=== PATIENT | female | born 1975 | race Caucasian/White ===

== ENCOUNTER 2016-08-05 00:05 | Emergency (ER) | payer MEDICARE ==
[2016-08-05 08:43] LABS: HEMOGLOBIN 13.1 gm/dl (12.3-15.3); RED BLOOD COUNT 4.76 M/UL (4.00-5.10); WHITE BLOOD COUNT 5.9 K/UL (4.5-11.0)
[2016-08-05 09:00] LABS: BUN/CREATININE RATIO 20 (0-10)
== END 2016-08-05 10:15 | disposition home or self-care (01) ==
LOC: ER1 00:05
PROVIDERS: Physician Assistant
DX: J20.9 Acute bronchitis, unspecified (principal); J01.90 Acute sinusitis, unspecified; I10 Essential (primary) hypertension
CPT/HCPCS: 36415; 71020; 80053; 83605; 85025; 87040; 87081; 87880; 99283; J7030

== ENCOUNTER 2021-02-28 04:25 | Inpatient (IN) | payer OTHER ==
[~2021-02-28] VITALS: Ht 170.2 cm; Wt 131.4 kg
[~2021-02-28 04:25] MED LIST: CLEOCIN HCL300 MG PO; IBUPROFEN600 MG PO; Viscous lidocaine2% TOP
[2021-02-28 05:18] LABS: RED BLOOD COUNT 4.65 M/UL (4.00-5.10); WHITE BLOOD COUNT 6.1 K/UL (4.5-11.0)
[2021-02-28] MEDS ORDERED: PROMETHAZINE-D473 M1 PO (09:30)
[2021-02-28] MEDS ORDERED: TYLENOL EXTRA500 MG PO (09:30)
[2021-03-01 03:36] LABS: HEMOGLOBIN 11.6 gm/dl (12.3-15.3); WHITE BLOOD COUNT 6.3 K/UL (4.5-11.0)
[2021-03-01 03:46] LABS: BUN/CREATININE RATIO 29 (0-10)
[2021-03-01 03:50] LABS: RED BLOOD COUNT 4.17 M/UL (4.00-5.10)
[2021-03-02 03:03] LABS: HEMOGLOBIN 11.1 gm/dl (12.3-15.3); RED BLOOD COUNT 4.02 M/UL (4.00-5.10)
[2021-03-02 03:18] LABS: WHITE BLOOD COUNT 8.8 K/UL (4.5-11.0)
[2021-03-02 03:37] LABS: BUN/CREATININE RATIO 37 (0-10)
--- NOTE | 2021-03-03 01:14 | NUR ---
this patient has called the house player several times this shift reporting that she is not being cared for, this patient has removed her heart monitor, puls ox and reports that staff has done this. the house player has been informed of this, she is instructed to leave the wires on that we use them to monitor her, she states understanding, zion continue to monitor
[2021-03-03 04:56] LABS: BUN/CREATININE RATIO 35 (0-10)
--- NOTE | 2021-03-03 10:42 | NUR ---
03/03/[address] BERNAL AND DR SIMPSON HERE TO SEE PT, OXYGEN IN MID 70'S. PT ATTEMPTED TO GET OUT OF BED TO THE BR WITHOUT AIRVO ON. EXPLAINED ORDER IS IN TO TRANSFER TO ICU. PT DECLINED BIPAP AFTER BOTH PHYSICIANS EXPLAINED THE IMPORTANCE OF WEARING. PT IS ALERT/ORIENTED, EXTENSIVE EDUCATION PROVIDED BY BOTH PHYSICIANS BUT PT CONTINUED TO DECLINE BIPAP.
--- NOTE | 2021-03-03 13:46 | NUR ---
03/03/[address] SIMPSON HERE TO SEE PATIENT, DISCUSSED IN DETAIL RISKS/BENEFITS OF USING OXYGEN, BIPAP AND/OR VENTILATOR.
--- NOTE | 2021-03-03 13:59 | NUR ---
03/03/[address] MOSLEY AT [facility] TO INTUBATE PATIENT, 20 ETOMIDATE AND 50 NATASHA GIVEN IVP RR 36, OXYGEN 87%, HR 163. 03/03/21 1311 VERSED 4MG GIVEN IVP PER DR MOSLEY ORDERS FOR INTUBATION. HR 159, OXYGEN 87%, RR 26. 03/03/21 [address] MOSLEY, CONFIRMED PER CXR. 03/03/21 1315 121/83, O2 95% BAGGED PER RT TRANSFERRED TO ICU.
[2021-03-04 05:53] LABS: HEMOGLOBIN 10.8 gm/dl (12.3-15.3); RED BLOOD COUNT 4.02 M/UL (4.00-5.10)
[2021-03-04 05:57] LABS: WHITE BLOOD COUNT 12.2 K/UL (4.5-11.0)
[2021-03-04 06:15] LABS: BUN/CREATININE RATIO 28 (0-10)
[2021-03-05 06:00] LABS: HEMOGLOBIN 12.2 gm/dl (12.3-15.3); WHITE BLOOD COUNT 9.7 K/UL (4.5-11.0)
[2021-03-05 06:03] LABS: RED BLOOD COUNT 4.49 M/UL (4.00-5.10)
[2021-03-05 06:12] LABS: BUN/CREATININE RATIO 27 (0-10)
[2021-03-06 05:22] LABS: HEMOGLOBIN 10.8 gm/dl (12.3-15.3); RED BLOOD COUNT 4.05 M/UL (4.00-5.10); WHITE BLOOD COUNT 7.3 K/UL (4.5-11.0)
[2021-03-06 05:51] LABS: BUN/CREATININE RATIO 28 (0-10)
[2021-03-07 05:42] LABS: HEMOGLOBIN 10.9 gm/dl (12.3-15.3); RED BLOOD COUNT 4.05 M/UL (4.00-5.10); WHITE BLOOD COUNT 7.5 K/UL (4.5-11.0)
[2021-03-07 06:04] LABS: BUN/CREATININE RATIO 38 (0-10)
[2021-03-08 05:48] LABS: HEMOGLOBIN 11.3 gm/dl (12.3-15.3); RED BLOOD COUNT 4.22 M/UL (4.00-5.10); WHITE BLOOD COUNT 10.1 K/UL (4.5-11.0)
[2021-03-08 06:05] LABS: BUN/CREATININE RATIO 42 (0-10)
--- NOTE | 2021-03-08 13:11 | NUR ---
1056 PT EXTUBATED CARA WELL,PLACED ON AIRVO AT 80% VIA NC 1130 PT HOLLERING WITH CONFUSED CONVERSATION, SPOKE WITH PT AND SHE CALMED DOWN 1210 PT ANXIOUS STILL CONFUSED, CALMS DOWN WITH CONVERSATION 1250 PT ANXIOUS PHOTO STUDIO ASSISTANT SPEAKING WITH PT
[2021-03-08 20:34] LABS: ADENOVIRUS F 40/41 Not Detected (Negative); ASTROVIRUS Not Detected (Negative); CAMPYLOBACTER Not Detected (Negative); CLOSTRIDIUM DIFFICILE TOX A/B Not Detected (Negative); CRYPTOSPORIDIUM Not Detected (Negative); E.COLI 0157 Not Detected (Negative); ENTAMOEBA HISTOLYTICA Not Detected (Negative); ENTEROPATHOGENIC E.COLI (EPEC) Not Detected (Negative); ENTEROTOXIGENIC E.COLI (ETEC) Not Detected (Negative); GIARDIA LAMBLIA Not Detected (Negative); NOROVIRUS GI/GII Not Detected (Negative); PLESIOMONAS SHIGELLOIDES Not Detected (Negative); ROTOVIRUS A Not Detected (Negative); SALMONELLA Not Detected (Negative); SAPOVIRUS Not Detected (Negative); SHIG/ENTEROINVAS.ECOLI (EIEC) Not Detected (Negative); SHIGA-LIK TOX.PRO.E.COLI (STEC Not Detected (Negative); VIBRIO Not Detected (Negative); VIBRIO CHOLERAE Not Detected (Negative); YERSINIA ENTEROCOLITICA Not Detected (Negative)
[2021-03-09 04:50] LABS: HEMOGLOBIN 11.4 gm/dl (12.3-15.3); RED BLOOD COUNT 4.15 M/UL (4.00-5.10)
[2021-03-09 05:15] LABS: WHITE BLOOD COUNT 12.9 K/UL (4.5-11.0)
[2021-03-09 05:39] LABS: BUN/CREATININE RATIO 42 (0-10)
[2021-03-09 07:36] LABS: ENTEROAGGREGATIVE E.COLI (EAEC DETECTED (Negative)
--- NOTE | 2021-03-09 22:52 | NUR ---
1999 PT BOYFRIEND AT SCREENING TABLE REQUESTING TO COME TO PT ROOM. I INFORMED SCREENING TABLE THAT BOYFRIEND IS COVID POSITIVE AND NOT ALLOWED TO COME SEE PT. BOYFRIEND CALLS THIS RN REQUESTING TO SEE PT, BOYFRIEND REPORTS TO ME THAT HE TESTED POSITIVE FOR COVID 8 DAYS AGO. I INFORMED HIM HE IS NOT ALLOWED IN TO SEE PT. BOYFRIEND REQUESTING INFORMATION ON PT BUT UNABLE TO PROVIDE PIN CODE THAT FAMILY HAD SET UP PRIOR. REPORTS HE WILL CALL BACK ONCE HE HAS THE PIN CODE FROM THE DAUGHTER. 2199 PT REQUESTING RN TO CALL DAUGHTER. RN CALLED KRYSTAL WITH NUMBER PROVIDED ON CHART. CALL WENT TO VOICEMAIL, MAILBOX WAS FULL. PT AWARE. PT REQUESTING RN TO CALL HEIDY (FAMILY MEMBER), HEIDY REPORTS SHE LIVES IN [place] AND WILL TRY TO GET A HOLD OF THE SON OR DAUGHTER. [phone]. 2214 PT DEMANDING TO SPEAK WITH SEXUAL ASSAULT SOCIAL WORKER. RICA CALLED TO BEDSIDE. PT REQUESTING XANAX AND HER OXYGEN TO BE TURNED DOWN SO "IT DOESN'T DAMAGE MY LUNGS." UNABLE TO TURN PT O2 DOWN DT O2 SAT BEING 92%. PT AWARE. I INFORMED PT AGAIN THAT HER XANAX IS NOT DUE FOR ANOTHER 3 HOURS. 2229 ALTHEA (SON) CALLED RN. SON UPDATED ON PT CONDITION AND POC. SON REQUESTING TO SPEAK TO PT. RN CALLED SON FROM PT ROOM. [phone]
--- NOTE | 2021-03-09 23:21 | NUR ---
1845 PT PUSHED CALL LIGHT REQUESTING XANAX. PT INFORMED SHE RECEIVED XANAX AROUND 530PM AND IT ISNT DUE AGAIN UNTIL 0130AM. 1904 PT HIT CALL LIGHT REQUESTING DIRECT ENTRY MIDWIFE. I INFORMED PT THAT DIRECT ENTRY MIDWIFE WOULD BE ROUNDING SOON AND I WOULD SEND HER IN TO TALK TO HER. PT EXPRESSED NO CONCERNS TO THIS RN. 1937 PT HIT CALL LIGHT REQUESTING WATER, WATER SITTING ON PT BEDSIDE TABLE. RN ASSISTED PT WITH DRINKING WATER. 2049 PT CALLED OUT REQUESTING XANAX AGAIN. PT INFORMED XANAX IS NOT DUE YET. 2099 PT HIT CALL LIGHT REQUESTING BOYFRIEND TO COME SEE HER. PT INFORMED ON VISITOR POLICIES. 2119 PT HIT CALL LIGHT REQUESTING HER "LITTLE ORANGE PILL." PT REPORTS ITS HER BP MEDICATION. INFORMED PT THAT IT IS NOT ON HER HOME MEDICATION LIST. PT UNABLE TO PROVIDE MEDICATION NAME OR DOSING. PT GIVEN METOPROLOL PO PER JUN. 2309 PT PUSHED CALL LIGHT REQUESTING A WASHCLOTH, WASHCLOTH GIVEN TO PT. PT REQUESTING TABLE BE PUSHED CLOSER SO SHE CAN DRINK HER WATER. TABLE PUSHED CLOSER. 2319 PT CALLED OUT REQUESTING A DRINK OF WATER. PT ASSISTED WITH WATER. PT STATED TO RN "IM TRYING NOT TO BE MEAN TO YOU." RN ASKED PT IF THERE IS ANYTHING ELSE SHE NEEDS HELP WITH PT STATES "NO." 2333 PT DAUGHTER KRYSTAL CALLED FOR UPDATE. PIN CODE CONFIRMED. UPDATE ON PT AND POC GIVEN. KRYSTAL REPORTS HER PHONE HAS BEEN OFF. RECONFIRMED DEANA PHONE NUMBER WITH HER [phone]. DAUGHTER REPORTS SHE WILL CALL BACK IN THE MORNING.
[2021-03-10 05:20] LABS: HEMOGLOBIN 10.9 gm/dl (12.3-15.3); RED BLOOD COUNT 3.93 M/UL (4.00-5.10)
[2021-03-10 06:02] LABS: BUN/CREATININE RATIO 31 (0-10)
--- NOTE | 2021-03-10 13:31 | NUR ---
PER MD ORDER PATIENT TRANSFERRED TO PCU AFTER CALLING REPORT TO RN LOGAN. PT WAS STABLE AT THIS TIME AND WEARING [id number] MASK. PATIENT PLACED ON MONITORING EQUIPTMENT AFTER TRANSFER, BED ALARM TURNED ON AND HANDOFF GIVEN TO RN AT BEDSIDE.
[2021-03-11 03:29] LABS: RED BLOOD COUNT 4.06 M/UL (4.00-5.10); WHITE BLOOD COUNT 9.8 K/UL (4.5-11.0)
[2021-03-11 03:50] LABS: BUN/CREATININE RATIO 28 (0-10)
[2021-03-12 09:45] LABS: HEMOGLOBIN 12.8 gm/dl (12.3-15.3)
[2021-03-12 09:46] LABS: RED BLOOD COUNT 4.81 M/UL (4.00-5.10); WHITE BLOOD COUNT 13.4 K/UL (4.5-11.0)
[2021-03-12 10:10] LABS: BUN/CREATININE RATIO 26 (0-10)
[2021-03-13 08:42] LABS: HEMOGLOBIN 10.8 gm/dl (12.3-15.3); RED BLOOD COUNT 4.03 M/UL (4.00-5.10)
[2021-03-13 08:55] LABS: BUN/CREATININE RATIO 19 (0-10)
--- NOTE | 2021-03-14 01:26 | NUR ---
APPROX 2340: NOTIFIED MD OF PT O2 SAT OF 75-77%. ORDER TO PLACE PT ON BIPAP OBTAINED. PT REFUSED TO BE PLACED ON BIPAP. APPROX 2347: CALLED MD BACK TO MAKE HIM AWARE OF PT REFUSAL TO WEAR BIPAP. ORDER GIVEN FOR 2MG OF MORPHINE. PT REFUSED MORPHINE STATED IT "MAKES HER SICK" ADVISED PT OF THE IMPORTANCE OF WEARING THE BIPAP TO KEEP O2 SATS UP. PT STATED "STOP TRYING TO SCARE ME, IT WILL MAKE MY BREATHING WORSE" CALLED MD BACK TO MAKE HIM AWARE. STATED HE WOULD COME TO FLOOR. APPROX 0010: MD ON FLOOR TO TALK TO PATIENT. ADVISED PATIENT THE IMPORTANCE OF BIPAP. PT AGREED TO BE PLACED ON BIPAP. O2 SAT 91% ON BIPAP.
--- NOTE | 2021-03-14 03:02 | NUR ---
APPROX 0240: PT REQUESTED BIPAP TO BE REMOVED. RN AND RT STRESSED THE IMPORTANCE OF LEAVING BIPAP IN PLACE. PT STILL INSISTENT OF BIPAP REMOVAL. 0302: PATIENT PLACED BACK ON BIPAP. O2 SAT 89%
[2021-03-14 08:21] LABS: HEMOGLOBIN 11.4 gm/dl (12.3-15.3); RED BLOOD COUNT 4.29 M/UL (4.00-5.10); WHITE BLOOD COUNT 15.6 K/UL (4.5-11.0)
--- NOTE | 2021-03-14 08:22 | NUR ---
PT NONCOMPLIANT WITH BIPAP, WANTING TO TAKE IT OFF. HOUSE AND RN EXPLAINED RISK VS BENIFITS TO PATIENT. PATIENT VERBALIZED SHE UNDERSTOOD RISK OF POSSIBLE VENT OR BUT STILL "NEEDED A BREAK FROM BIPAP". EXPLAINED TO PATIENT WHEN SHE TOOK OF BIPAP HER O2 SATS DROPPED TO 20'S & 30'S PT DENIES DESATING STATING ITS BECAUSE THEY CHANGED THE O2 SENSOR OF FINGER PROBE. PATIENT IS A&OX4, FAMILY AT BESIDE ATTEMPTED TO EXPLAIN RISK OF TAKING OF BIPAP TO PAITENT ALSO. PATIENT SATS LOW 70'S AT THIS TIME WITH BIPAP IN PLACE. MD NOTIFIED. NEW ORDERS TO TRANSFER PATIENT TO ICU WHEN BE AVAILABLE.
[2021-03-14 08:41] LABS: BUN/CREATININE RATIO 18 (0-10)
--- NOTE | 2021-03-14 09:04 | NUR ---
REPORT CALLED TO ICU. PT O2 SAT 68 ON BIPAP. PATIENT TRANSFERED.
[2021-03-14] MEDS ORDERED: LOPRESSOR 25 MG25 MG PO (11:30)
[2021-03-14] MEDS ORDERED: ELIQUIS 5 MG TAB5 MG PO (11:30)
[2021-03-14] MEDS ORDERED: DEXAMETHASONE 44 MG PO (11:30)
[2021-03-14] MEDS ORDERED: SEDATION (11:30)
[2021-03-14] MEDS ORDERED: DEXAMETHASONE 44 MG IV (11:31)
[2021-03-14] MEDS ORDERED: [UNRECOGNIZED DRUG - OTHER] (13:16)
[2021-03-14] MEDS ORDERED: MICAFUNGIN100 MG IV (13:19)
[2021-03-14] MEDS ORDERED: [UNRECOGNIZED DRUG - OTHER] IV (13:19)
[2021-03-15 05:39] LABS: ACINETOBACTER BAUMANNII Not Detected (Negative); CANDIDA ALBICANS Not Detected (Negative); CANDIDA KRUSEI Not Detected (Negative); CANDIDA TROPICALIS Not Detected (Negative); ENTEROCOCCUS Not Detected (Negative); ESCHERICHIA COLI Not Detected (Negative); HAEMOPHILUS INFLUENZAE Not Detected (Negative); KLEBSIELLA OXYTOCA Not Detected (Negative); KLEBSIELLA PNEUMONIAE Not Detected (Negative); KPC-CARBAPENEM-RESISTANCE GENE Not Detected (Negative); PROTEUS Not Detected (Negative); PSEUDOMONAS AERUGINOSA Not Detected (Negative); SERRATIA MARCESANS Not Detected (Negative); STAPHYLOCOCCUS AUREUS Not Detected (Negative); STREP AGALACTIAE (GROUP B) Not Detected (Negative); STREP PYOGENES (GROUP A) Not Detected (Negative); STREPTOCOCCUS Not Detected (Negative); vanA/B (VANCOMYCIN RESIST GENE Not Detected (Negative)
[2021-03-15 05:40] LABS: HEMOGLOBIN 11.5 gm/dl (12.3-15.3); RED BLOOD COUNT 4.13 M/UL (4.00-5.10)
[2021-03-15 05:42] LABS: WHITE BLOOD COUNT 32.6 K/UL (4.5-11.0)
[2021-03-15 07:01] LABS: STAPHYLOCOCCUS DETECTED (Negative); mecA (METHICILLIN RESIST GENE DETECTED (Negative)
[2021-03-16 02:27] LABS: HEMOGLOBIN 9.7 gm/dl (12.3-15.3)
[2021-03-16 02:38] LABS: RED BLOOD COUNT 3.47 M/UL (4.00-5.10); WHITE BLOOD COUNT 30.3 K/UL (4.5-11.0)
[2021-03-17 04:55] LABS: HEMOGLOBIN 8.6 gm/dl (12.3-15.3); WHITE BLOOD COUNT 29.5 K/UL (4.5-11.0)
[2021-03-17 05:37] LABS: RED BLOOD COUNT 3.09 M/UL (4.00-5.10)
[2021-03-19 07:03] LABS: RED BLOOD COUNT 2.95 M/UL (4.00-5.10)
[2021-03-19 07:05] LABS: WHITE BLOOD COUNT 28.4 K/UL (4.5-11.0)
[2021-03-20 05:26] LABS: HEMOGLOBIN 8.2 gm/dl (12.3-15.3); RED BLOOD COUNT 2.95 M/UL (4.00-5.10); WHITE BLOOD COUNT 25.5 K/UL (4.5-11.0)
[2021-03-21 04:37] LABS: HEMOGLOBIN 8.8 gm/dl (12.3-15.3); WHITE BLOOD COUNT 25.6 K/UL (4.5-11.0)
[2021-03-21 15:11] LABS: HEPARIN INDUCED PLATELET AB 0.131 OD (0.000-0.400)
[2021-03-22 05:15] LABS: HEMOGLOBIN 8.1 gm/dl (12.3-15.3); RED BLOOD COUNT 2.87 M/UL (4.00-5.10); WHITE BLOOD COUNT 19.5 K/UL (4.5-11.0)
[2021-03-22 14:21] LABS: HEMOGLOBIN 9.5 gm/dl (12.3-15.3)
[2021-03-22 14:24] LABS: RED BLOOD COUNT 3.27 M/UL (4.00-5.10); WHITE BLOOD COUNT 26.9 K/UL (4.5-11.0)
[2021-03-23 04:14] LABS: HEMOGLOBIN 8.4 gm/dl (12.3-15.3)
[2021-03-23 04:29] LABS: RED BLOOD COUNT 2.86 M/UL (4.00-5.10); WHITE BLOOD COUNT 17.5 K/UL (4.5-11.0)
[2021-03-24 06:34] LABS: HEMOGLOBIN 10.7 gm/dl (12.3-15.3); RED BLOOD COUNT 3.36 M/UL (4.00-5.10)
[2021-03-24 06:36] LABS: WHITE BLOOD COUNT 31.6 K/UL (4.5-11.0)
--- NOTE | 2021-03-24 19:48 | NUR ---
DIALYSIS IN PROGRESS. DIALYSIS R.N. AT BEDSIDE. WILL CONTINUE TO MONITOR AND ASSIST NEEDED.
--- NOTE | 2021-03-24 21:08 | NUR ---
ELIQUIS AND SOLUCORTEF HELD AT SCHEDULED TIME D/T DIALYSIS IN PROGRESS . THESE MEDICATIONS WOULD BE REMOVED DURING PROCEDURE PER DIALYSIS R.N.
--- NOTE | 2021-03-24 23:11 | NUR ---
DIALYSIS COMPLETED. 2100ML REMOVED.
[2021-03-25 05:19] LABS: HEMOGLOBIN 10.5 gm/dl (12.3-15.3)
[2021-03-25 05:31] LABS: RED BLOOD COUNT 2.94 M/UL (4.00-5.10); WHITE BLOOD COUNT 34.7 K/UL (4.5-11.0)
--- NOTE | 2021-03-26 05:00 | NUR ---
0418 TANG CALLED TO BEDSIDE DT DROP IN BP AND HR. 0419 [employer] CALLED. CPR STARTED. SEE CODE SHEET FOR COMPLETE DOCUMENTATION. RN CALLED PT SON, ALTHEA, NO ANSWER AND VOICEMAIL BOX FULL. 0422 CALLED FRANCOISE HOGUE (PERSON OF CONTACT IN CHART). NO ANSWER. MAILBOX ALSO FULL. CALLED ALTHEA AGAIN, NO ANSWER. 0423 CALLED MAREK, ALSO CONTACT IN PT CHART. UNABLE TO COMPLETE CALL. ATTEMPTED TO CALL ALTHEA AGAIN, NO ANSWER. 0426 CALLED ALTHEA AGAIN, NO ANSWER. 0435 ATTEMPTED TO CALL ALTHEA AGAIN, NO ANSWER. MAILBOX FULL. 0438 JAMES CONTACTED.
--- NOTE | 2021-03-26 07:29 | NUR ---
0700- ATTEMPTED TO CONTACT PT'S SON - ALTHEA GUO. NO ANSWER AND MAILBOX IS FULL. WILL TRY AGAIN AT A LATER TIME.
--- NOTE | 2021-03-26 08:00 | NUR ---
SECOND ATTEMPT MADE TO CONTACT SON ALTHEA GUO. NO ANSWER AND VOICE MAILBOX IS FULL.
--- NOTE | 2021-03-26 08:26 | NUR ---
RECEIVED CALL FROM FAMILY FRIEND REQUESTING TO SEE PT. INFORMED HER THAT NO VISITORS WERE ALLOWED AT THIS TIME AND WE WERE ATTEMPTING TO CONTACT SON. FRIEND GAVE SAME NUMBER PREVIOUSLY CALLED FOR SON. ATTEMPTED AGAIN TO CALL SON WITHOUT SUCCESS.
--- NOTE | 2021-03-26 10:15 | NUR ---
9514 - SPOKE WITH SON - ALTHEA. MADE AWARE OF PT'S . REQUEST BOWLING HOME. HOME NOTIFIED AND WILL COME FOR REMAINS.
== END 2021-03-26 10:33 | disposition expired | DRG 207 ==
LOC: ER1 04:25 → CDU 06:42 → PROG CARE 06:42 → CCU 06:42 → PROG CARE 17:04 → CCU 03-03 13:25 → PROG CARE 03-10 13:03 → M/S 03-12 20:25 → MED SURG 4 03-12 20:46 → CCU 03-14 09:21
PROVIDERS: Family Medicine; Internal Medicine; Internal Medicine Critical Care Medicine; Internal Medicine Nephrology; Internal Medicine Pulmonary Disease; ADMIT Internal Medicine
PROC: XW033E5 Introduction of Remdesivir Anti-infective into Peripheral Vein, Percutaneous Approach, New Technology Group 5 (ICD-10-PCS; 2021-02-28)
PROC: 3E0333Z Introduction of Anti-inflammatory into Peripheral Vein, Percutaneous Approach (ICD-10-PCS; 2021-02-28)
PROC: 5A0955A Assistance with Respiratory Ventilation, Greater than 96 Consecutive Hours, High Flow/Velocity Cannula (ICD-10-PCS; 2021-02-28)
PROC: 8E0ZXY6 Isolation (ICD-10-PCS; 2021-02-28)
PROC: 5A1955Z Respiratory Ventilation, Greater than 96 Consecutive Hours (ICD-10-PCS; 2021-03-03)
PROC: 0BH17EZ Insertion of Endotracheal Airway into Trachea, Via Natural or Artificial Opening (ICD-10-PCS; 2021-03-03)
PROC: 02HV33Z Insertion of Infusion Device into Superior Vena Cava, Percutaneous Approach (ICD-10-PCS; 2021-03-03)
PROC: B548ZZA Ultrasonography of Superior Vena Cava, Guidance (ICD-10-PCS; 2021-03-03)
PROC: 3E033XZ Introduction of Vasopressor into Peripheral Vein, Percutaneous Approach (ICD-10-PCS; 2021-03-04)
PROC: 03HY32Z Insertion of Monitoring Device into Upper Artery, Percutaneous Approach (ICD-10-PCS; 2021-03-14)
PROC: 5A1955Z Respiratory Ventilation, Greater than 96 Consecutive Hours (ICD-10-PCS; 2021-03-14)
PROC: 0BH17EZ Insertion of Endotracheal Airway into Trachea, Via Natural or Artificial Opening (ICD-10-PCS; 2021-03-14)
PROC: 02HV33Z Insertion of Infusion Device into Superior Vena Cava, Percutaneous Approach (ICD-10-PCS; 2021-03-14)
PROC: B548ZZA Ultrasonography of Superior Vena Cava, Guidance (ICD-10-PCS; 2021-03-14)
PROC: 02HV33Z Insertion of Infusion Device into Superior Vena Cava, Percutaneous Approach (ICD-10-PCS; 2021-03-17)
PROC: B548ZZA Ultrasonography of Superior Vena Cava, Guidance (ICD-10-PCS; 2021-03-17)
PROC: 3E0G76Z Introduction of Nutritional Substance into Upper GI, Via Natural or Artificial Opening (ICD-10-PCS; principal; 2021-03-19)
PROC: 0DH63UZ Insertion of Feeding Device into Stomach, Percutaneous Approach (ICD-10-PCS; principal; 2021-03-19)
PROC: 03HY32Z Insertion of Monitoring Device into Upper Artery, Percutaneous Approach (ICD-10-PCS; 2021-03-24)
PROC: B34JZZZ Ultrasonography of Left Upper Extremity Arteries (ICD-10-PCS; 2021-03-24)
PROC: 5A12012 Performance of Cardiac Output, Single, Manual (ICD-10-PCS; 2021-03-26)
DX: U07.1 COVID-19 (principal); J80 Acute respiratory distress syndrome; J12.82 Pneumonia due to coronavirus disease 2019; A41.89 Other specified sepsis; R65.21 Severe sepsis with septic shock; N17.0 Acute kidney failure with tubular necrosis; K72.00 Acute and subacute hepatic failure without coma; J15.9 Unspecified bacterial pneumonia; I46.9 Cardiac arrest, cause unspecified; E87.4 Mixed disorder of acid-base balance; E87.1 Hypo-osmolality and hyponatremia; I82.442 Acute embolism and thrombosis of left tibial vein; I82.4Z1 Acute embolism and thrombosis of unspecified deep veins of right distal lower extremity; Z99.11 Dependence on respirator [ventilator] status; E87.3 Alkalosis; Z66 Do not resuscitate; I12.9 Hypertensive chronic kidney disease with stage 1 through stage 4 chronic kidney disease, or unspecified chronic kidney disease; N18.9 Chronic kidney disease, unspecified; E66.01 Morbid (severe) obesity due to excess calories; T36.8X5A Adverse effect of other systemic antibiotics, initial encounter; L89.892 Pressure ulcer of other site, stage 2; L89.626 Pressure-induced deep tissue damage of left heel; I08.1 Rheumatic disorders of both mitral and tricuspid valves; I27.20 Pulmonary hypertension, unspecified; R74.01 Elevation of levels of liver transaminase levels; E87.5 Hyperkalemia; K31.84 Gastroparesis; N92.4 Excessive bleeding in the premenopausal period; D63.1 Anemia in chronic kidney disease; E87.6 Hypokalemia; D63.8 Anemia in other chronic diseases classified elsewhere; D69.6 Thrombocytopenia, unspecified; E87.70 Fluid overload, unspecified; Z99.2 Dependence on renal dialysis; Z83.3 Family history of diabetes mellitus; Z88.1 Allergy status to other antibiotic agents; Z98.891 History of uterine scar from previous surgery
CPT/HCPCS: ECHO; 36415; 36600; 71045; 71275; 76705; 80048; 80053; 80061; 80074; 80076; 80202; 81001; 82009; 82550; 82553; 82570; 82728; 82803; 82962; 83036; 83605; 83615; 83735; 83874; 83880; 84100; 84133; 84156; 84300; 84439; 84443; 84484; 84550; 85007; 85025; 85027; 85379; 85384; 85610; 85652; 85730; 86140; 87040; 87070; 87077; 87081; 87086; 87150; 87186; 87205; 87507; 89050; 90937; 92526; 92610; 93005; 93306; 93970; 94002; 94003; 94640; 94644; 94660; 94664; 94760; 94762; 96374; 96375; 97110; 97110-GP-CQ; 97162; 97530-GP-CQ; 99285; A6212; C1752; C9113; J0330; J0692; J0696; J1100; J1335; J1642; J1644; J1650; J1720; J1940; J2060; J2185; J2248; J2250; J2270; J2370; J2405; J2704; J3010; J3370; J7030; J7040; J7042; J7050; J7070; P9047; Q5106; Q9967; U0002